=== PATIENT | female | born 1990 | race Caucasian/White ===

== ENCOUNTER 2022-07-21 00:55 | Emergency (ER) | payer SELFPAY ==
[2022-07-21 01:09] VITALS: BMI 23.0
[2022-07-21 03:41] LABS: VENOUS BASE EXCESS -2.5 mmol/L (-2-2); VENOUS O2 SATURATION 97.3 % (70-80); VENOUS PCO2 33.3 mmHg (38-52); VENOUS PH 7.422 (7.310-7.410)
[2022-07-21 03:46] LABS: BASO % 1.3 % (0-2.0); HEMOGLOBIN 11.6 GM/dL (10.7-15.3); LYMPH % 33.7 % (8-40); MCH 29.9 pg (25.7-33.7); MCHC 33.2 g/dl (32.0-36.0); MEAN CELL VOLUME 90.1 fl (80-96); MEAN PLT VOLUME 8.6 fl (7.5-11.1); MONO % 8.3 % (3.8-10.2); NEUT % 54.7 % (42.8-82.8); PLATELET COUNT 230 10^3/uL (134-434); RBC 3.89 M/mm3 (3.60-5.2); RDW 14.7 % (11.6-15.6)
[2022-07-21 04:00] LABS: PHENCYCLIDINE,URINE NEGATIVE (NEGATIVE)
[2022-07-21 04:01] LABS: COCAINE, UR NEGATIVE (NEGATIVE); OPIATES, URI NEGATIVE (NEGATIVE); URINE AMPHETAMINES NEGATIVE (NEGATIVE); URINE BARBITURATES NEGATIVE (NEGATIVE)
[2022-07-21 04:02] LABS: CHLORIDE 110 mmol/L (98-107); SODIUM 141 mmol/L (136-145)
[2022-07-21 04:04] LABS: ALBUMIN 3.4 g/dl (3.4-5.0); CALCIUM 8.7 mg/dL (8.5-10.1)
[2022-07-21 04:05] LABS: ANION GAP 7 MMOL/L (8-16); BLOOD UREA NITROGEN 12.9 mg/dL (7-18); CO2 24 mmol/L (21-32); GLUCOSE,RANDOM 103 mg/dL (74-106)
[2022-07-21 04:07] LABS: SGPT/ALT 37 U/L (13-61)
[2022-07-21 04:08] LABS: CREATININE 0.5 mg/dL (0.55-1.3); SGOT/AST 19 U/L (15-37)
[2022-07-21 04:09] LABS: BILIRUBIN,TOTAL 0.2 mg/dL (0.2-1); TOT PROT 5.8 g/dl (6.4-8.2)
[2022-07-21 04:10] LABS: ALK PHOS 43 U/L (45-117)
[2022-07-21 04:13] LABS: METHADONE, UR NEGATIVE (NEGATIVE); URINE BENZODIAZEPINES NEGATIVE (NEGATIVE)
[2022-07-21 12:34] LABS: PH,URINE 5.5 (5.0-8.0); URINE APPEARANCE CLEAR; URINE BILIRUBIN NEGATIVE (NEGATIVE); URINE COLOR YELLOW; URINE GLUCOSE (UA) NEGATIVE (NEGATIVE); URINE KETONE TRACE (NEGATIVE); URINE LEUK ESTERASE NEGATIVE (NEGATIVE); URINE NITRITE NEGATIVE (NEGATIVE); URINE PROTEIN NEGATIVE (NEGATIVE)
[2022-07-23 03:04] VITALS: RESP 16
[2022-07-23 12:18] VITALS: BP 106/61; PULSE 76; TEMP 97.8
== END 2022-07-23 12:45 | disposition short-term general hospital (02) ==
LOC: JER 00:55
DX: R45.851 Suicidal ideations (principal); T14.91XA Suicide attempt, initial encounter
CPT/HCPCS: 0241U-QW; 36415; 80053; 80307; 81003; 82803; 84703; 85025; 93005; 93010; 99285-25; C9803-CS; U0003; U0005